=== PATIENT | female | born 1970 | race African-American/Black ===

== ENCOUNTER 2018-09-23 18:15 | Emergency (ER) | payer MEDICAID ==
[~2018-09-23] VITALS: Ht 167.6 cm; Wt 89.8 kg
[~2018-09-23 18:15] MED LIST: HYDROCHLOROTHIA25 MG ORAL; METOPROLOL SUCC25 MG ORAL; NAPROXEN500 M2 ORAL
[2018-09-23] MEDS ORDERED: Ketorolac 30mg Inj IM ONE (18:45)
[2018-09-23] MEDS ORDERED: Phenazopyridine 200mg tab ORAL ONE (18:45)
[2018-09-23 18:53] LABS: APPEARANCE,URINE CLEAR; BILIRUBIN, URINE NEGATIVE (NEGATIVE); COLOR,URINE PALE YELLOW; GLUCOSE, URINE (UA) NEGATIVE (NEGATIVE); KETONES,URINE NEGATIVE (NEGATIVE); LEUKOCYTE ESTERASE ,URINE 2+ (NEGATIVE); NITRITE,URINE NEGATIVE (NEGATIVE); PH,URINE 7 (4.5-8.0); PROTEIN,URINE NEGATIVE (NEGATIVE); UROBILINOGEN,URINE NORMAL MG/DL (0.0-1.0)
--- NOTE | 2018-09-23 18:59 | Diagnostic Imaging Report ---
EXAM: XR Left Toe(s), 2 or More Views CLINICAL HISTORY: PAIN TECHNIQUE: Frontal, lateral and oblique views of toe(s) of the left foot. COMPARISON: No relevant prior studies available. FINDINGS: Bones/joints: Oblique proximal fourth phalanx body fracture with mild apex medial angulation and mild displacement. No dislocation. Soft tissues: Unremarkable. No radiopaque foreign body. IMPRESSION: 1. Oblique proximal fourth phalanx body fracture with mild apex medial angulation and mild displacement. 2. Otherwise no acute abnormality.
--- NOTE | 2018-09-23 19:51 | Emergency Room Report ---
History of Present Illness General Chief Complaint: Lower Extremity Injury Source: Patient Present Illness HPI 48-year-old female presents to the emergency department complaining of 8 out of 10 in severity pain to the left third and fourth toes after accidentally stubbing her toes on a corner at home. Patient reports pain with attempts to weight-bear. Patient reports some swelling in the left fourth toe.Denies numbness tingling or loss of sensation or gross motor movements of the extremities, incontinence of bowel or bladder. Denies CP, Palpitations, LOC, AMS , dizziness, Changes in Vision, weakness or a sudden severe headache. Pt. also requesting BV cream as she has had some fishy smelling d/c and is consistent with previous episodes of BV in the past. Allergies: Coded Allergies: AMOXICILLIN (Unverified Allergy, Unknown, 09/16/14) CODEINE (Unverified Allergy, Unknown, 09/16/14) Patient History Past Medical History: see triage record Past Surgical History: none Last Menstrual Period: 09/14/18 Now: No Reviewed Nursing Documentation: PMH: Agreed; PSxH: Agreed Nursing Documentation-PMH Past Medical History: No History, Except For Hx Cardiac Problems: Yes - palpitation Hx Hypertension: Yes Hx Asthma: Yes Review of Systems All Other Systems: negative except mentioned in HPI Physical Exam Vital Signs Date Time Temp Pulse Resp B/P (MAP) Pulse Ox O2 Delivery O2 Flow Rate FiO2 09/23/18 18:21 98.2 61 20 131/84 99 Room Air Sp02 EP Interpretation: reviewed, normal General Appearance: no apparent distress, alert, GCS 15, non-toxic Head: normocephalic, atraumatic Eyes: bilateral eye normal inspection, bilateral eye PERRL ENT: hearing grossly normal, normal voice Neck: full range of motion Respiratory: lungs clear, normal breath sounds, speaking full sentences Cardiovascular #1: regular rate, rhythm, normal capillary refill Musculoskeletal: back normal, normal range of motion, tender - LEft 3rd and 4th toe, swelling to the 4th toe toe appears slightly turned. Neurologic: alert, oriented x3, responsive, motor strength/tone normal, sensory intact, speech normal, grossly normal Psychiatric: judgement/insight normal Skin: normal color, no rash, warm/dry, well hydrated Medical Decision Making PA Attestation Dr. sarabia is my supervising Physician whom patient management has been discussed with. Diagnostic Impression: Primary Impression: Toe fracture, left Qualified Codes: S92.912A - Unspecified fracture of left toe(s), initial encounter for closed fracture Additional Impression: Bacterial vaginosis ER Course 48-year-old female presents to the emergency department complaining of 8 out of 10 in severity pain to the left third and fourth toes after accidentally stubbing her toes on a corner at home. Patient reports pain with attempts to weight-bear. Patient reports some swelling in the left fourth toe.Denies numbness tingling or loss of sensation or gross motor movements of the extremities, incontinence of bowel or bladder. Denies CP, Palpitations, LOC, AMS , dizziness, Changes in Vision, weakness or a sudden severe headache. Pt. also requesting BV cream as she has had some fishy smelling d/c and is consistent with previous episodes of BV in the past. Ddx considered but are not limited to Fracture, dislocation, contusion, Sprain/ Strain/Spasm. Vital signs: are WNL, pt. is afebrile H&PE are most consistent with musculoskeletal injury will perform imaging to r/ o fractures/dislocations. ORDERS: - X-ray Left toes 3 views - POSITIVE for Fracture--LEft 4th proximal phalanx body fracture with mild apex angulation--Per official radiology report- Please see report for specific details. ED INTERVENTIONS: - Toradol - Nolan tape of the 4th left toe to the left 3rd toe by faculty dean. pt. remains NVI both before and after. --Patient is provided with crutches and instructed on their use DISCHARGE: At this time pt. is stable for d/c to home. Will provide printed patient care instructions, and any necessary prescriptions. Care plan and follow up instructions have been discussed with the patient prior to discharge. Labs Test 09/23/18 18:43 Urine Color Pale yellow Urine Appearance Clear Urine pH 7 (4.5-8.0) Urine Specific [place] 1.010 (1.005-1.035) Urine Protein Negative (NEGATIVE) Urine Glucose (UA) Negative (NEGATIVE) Urine Ketones Negative (NEGATIVE) Urine Blood 2+ (NEGATIVE) Urine Nitrite Negative (NEGATIVE) Urine Bilirubin Negative (NEGATIVE) Urine Urobilinogen Normal MG/DL (0.0-1.0) Urine Leukocyte Esterase 2+ (NEGATIVE) Urine RBC 0-2 /HPF (0 - 2) Urine WBC 2-4 /HPF (0 - 2) Urine Squamous Epithelial Cells Few /LPF (NONE/OCC) Urine Bacteria Few /HPF (NONE) Other X-Ray Diagnostic Results Other X-Ray Diagnostic Results : X-Ray ordered: Left TOes # of Views/Limited Vs Complete: 3 View Indication: Pain EP Interpretation: Yes PA Xray: Interpretation reviewed, by supervising MD, and agrees with findings. Interpretation: no dislocation, no soft tissue swelling, other - LEft 4th proximal phalanx body fracture with mild apex angulation . Impression: Other - abnormal Electronically Signed by: Radha Harrison PA-C Last Vital Signs Date Time Temp Pulse Resp B/P (MAP) Pulse Ox O2 Delivery O2 Flow Rate FiO2 09/23/18 19:24 98.3 09/23/18 18:21 61 20 131/84 99 Room Air Disposition: HOME, SELF-CARE Condition: Stable Scripts Metronidazole* (METROGEL-VAGINAL*) 70 Gm Gel.w.appl 1 APPL VAGIN EVERY 12 HOURS, #70 GM Prov: Radha Harrison 09/23/18 Ibuprofen* (MOTRIN*) 600 Mg Tablet 600 MG ORAL THREE TIMES A DAY, #30 TAB 0 Refills Prov: Radha Harrison 09/23/18 Hydrocodone Bit/Acetaminophen 5-325* (NORCO 5-325*) 1 Each Tablet 1 TAB ORAL Q6H PRN for For Pain, #10 TAB 0 Refills Prov: Radha Harrison 09/23/18 Referrals: NON PHYSICIAN (PCP) Patient Instructions: Toe Fracture, [id number] Additional Instructions: Take medications as directed. Follow up with an [facility] in 3-5 days, even if your symptoms have resolved. --Please review list of primary care clinics, if you do not already have a primary care provider who can give you an Orthopedic Referral. Return sooner to ED if new symptoms occur, or current symptoms become worse. Do not drink alcohol, drive, or operate heavy machinery while taking [place] as this may cause drowsiness. - Please note that this Emergency Department Report was dictated using [employer] training manager technology software, occasionally this can lead to erroneous entry secondary to interpretation by the dictation equipment. Radha Harrison Sep 23, 2018 19:51
[2018-09-23] MEDS ORDERED: IBUPROFEN600 MG ORAL (19:55)
[2018-09-23] MEDS ORDERED: NORCO 5-325 TA1 EACH ORAL (19:55)
[2018-09-23] MEDS ORDERED: METROGEL-VAGINA70 G1 VAGIN (19:56)
[2018-09-23 20:12] VITALS: BP 120/89
== END 2018-09-23 20:12 | disposition home or self-care (01) ==
LOC: EMR 18:45
DX: S92.512A Displaced fracture of proximal phalanx of left lesser toe(s), initial encounter for closed fracture (principal); N76.0 Acute vaginitis; I10 Essential (primary) hypertension; J45.909 Unspecified asthma, uncomplicated; W22.8XXA Striking against or struck by other objects, initial encounter; Y92.009 Unspecified place in unspecified non-institutional (private) residence as the place of occurrence of the external cause; Z88.0 Allergy status to penicillin; Z88.6 Allergy status to analgesic agent
CPT/HCPCS: 73660; 81003; 96372; 99283; J1885